=== PATIENT | female | born 1980 | race Asian ===

== ENCOUNTER → 2019-05-21 | Outpatient (CLI) | payer OTHER | END | disposition home or self-care (01) | LOC: SMI 09:59 | PROVIDERS: ATTEND Neurological Surgery | DX: M25.461 Effusion, right knee (principal); M19.012 Primary osteoarthritis, left shoulder; M48.02 Spinal stenosis, cervical region; M50.223 Other cervical disc displacement at C6-C7 level; M54.12 Radiculopathy, cervical region | CPT/HCPCS: 73221; 73721 ==

== ENCOUNTER 2022-01-01 06:59 | Day surgery (SDC) | payer OTHER, SELFPAY ==
[~2022-01-01] VITALS: Ht 165.1 cm; Wt 63.5 kg
[2022-01-01 08:08] LABS: HCG,QUAL RESULT NEGATIVE (NEGATIVE)
[2022-01-01] MEDS ORDERED: MIDAZOLAM HCL 5 MG/5 ML VIAL ONE (08:30)
[2022-01-01] MEDS ORDERED: IOHEXOL 300 mgI/mL, 50 mL INFUS..BTL IV ONE (08:30)
[2022-01-01] MEDS ORDERED: LIDOCAINE 2%, 20 ML MDV ONE (08:30)
[2022-01-01] MEDS ORDERED: BUPIVACAINE /PF 0.25% 30 ML VIAL INJ ONE (08:30)
[2022-01-01] MEDS ORDERED: DIPHENHYDRAMINE INJ 50 MG/ML VIAL ONE (08:30)
[2022-01-01] MEDS ORDERED: NS 500 ML IV.SOLN IV ONE (08:30)
[2022-01-01] MEDS ORDERED: methylPREDNISolone ACETATE 40 MG/ML ONE (08:30)
[2022-01-01 14:45] VITALS: BP_SYST 128
== END 2022-01-01 11:10 | disposition home or self-care (01) ==
LOC: SDS 06:59 → SMU 06:59 → SDS 11:10
PROVIDERS: ATTEND Internal Medicine
DX: M50.13 Cervical disc disorder with radiculopathy, cervicothoracic region (principal); M25.511 Pain in right shoulder; Z20.822 Contact with and (suspected) exposure to COVID-19; Z79.899 Other long term (current) drug therapy
CPT/HCPCS: 36415; 76000; 84703; J1030; J1200; J2001; J2250; J3490; J7040; Q9967; U0003

== ENCOUNTER 2022-05-28 06:47 | Day surgery (SDC) | payer OTHER ==
[~2022-05-28] VITALS: Ht 165.1 cm; Wt 63.5 kg
[2022-05-28 07:18] LABS: HCG,QUAL RESULT NEGATIVE (NEGATIVE)
[2022-05-28] MEDS ORDERED: MIDAZOLAM HCL 5 MG/5 ML VIAL ONE (08:38)
[2022-05-28] MEDS ORDERED: DIPHENHYDRAMINE INJ 50 MG/ML VIAL ONE (08:39)
[2022-05-28] MEDS ORDERED: LIDOCAINE 2%, 20 ML MDV ONE (09:57)
[2022-05-28] MEDS ORDERED: IOHEXOL 300 mgI/mL, 50 mL INFUS..BTL IV ONE (09:57)
[2022-05-28] MEDS ORDERED: methylPREDNISolone ACETATE 40 MG/ML ONE (09:57)
[2022-05-28] MEDS ORDERED: NORMAL SALINE 10 ML VIAL ONE (09:57)
[2022-05-28 15:40] VITALS: BP_SYST 120
== END 2022-05-28 11:10 | disposition home or self-care (01) ==
LOC: SDS 06:47 → SMU 06:48 → SDS 11:10
PROVIDERS: ATTEND Internal Medicine
DX: M50.90 Cervical disc disorder, unspecified, unspecified cervical region (principal); M25.511 Pain in right shoulder; Z20.822 Contact with and (suspected) exposure to COVID-19; Z79.899 Other long term (current) drug therapy
CPT/HCPCS: 36415 ×2; 62321; 87426; 84703; U0003; J1200; J2001; J1030; J2250; Q9967; 76000

== ENCOUNTER 2022-08-27 07:11 | Day surgery (SDC) | payer OTHER ==
[~2022-08-27] VITALS: Ht 165.1 cm; Wt 61.7 kg
[2022-08-27 07:28] LABS: HCG,QUAL RESULT NEGATIVE (NEGATIVE)
[2022-08-27] MEDS ORDERED: MIDAZOLAM HCL 5 MG/5 ML VIAL ONE (08:46)
[2022-08-27] MEDS ORDERED: DIPHENHYDRAMINE INJ 50 MG/ML VIAL ONE (08:47)
[2022-08-27] MEDS ORDERED: fentaNYL CITRATE/PF 100 MCG/2 ML AMP ONE (08:47)
[2022-08-27] MEDS ORDERED: ONDANSETRON HCL 4 MG/2 ML VIAL ONE (08:48)
[2022-08-27 15:29] VITALS: BP_SYST 120
== END 2022-08-27 11:40 | disposition home or self-care (01) ==
LOC: SDS 07:11 → STU 07:14 → SDS 11:40
PROVIDERS: ATTEND Internal Medicine
DX: M50.83 Other cervical disc disorders, cervicothoracic region (principal); M25.511 Pain in right shoulder; I10 Essential (primary) hypertension; E78.5 Hyperlipidemia, unspecified; Z79.899 Other long term (current) drug therapy; Z20.822 Contact with and (suspected) exposure to COVID-19
CPT/HCPCS: 36415; 62321; 84703; U0003; J1200; J2250; J3010; 76000; J2405

== ENCOUNTER 2023-09-23 09:19 | Day surgery (SDC) | payer OTHER ==
[~2023-09-23] VITALS: Ht 165.1 cm; Wt 61.7 kg
[~2023-09-23 09:19] MED LIST: DEXAMETHASONE SOD PHOSPHATE 4 MG/ML VIAL ONE; ISOVUE-300 (IOPAMIDOL) 100 ML INFUS..BTL IV ONE; LIDOCAINE 2%, 20 ML MDV ONE; NORMAL SALINE 10 ML VIAL ONE
[2023-09-23 09:51] LABS: HCG,QUAL RESULT NEGATIVE (NEGATIVE)
[2023-09-23] MEDS ORDERED: DIPHENHYDRAMINE INJ 50 MG/ML VIAL IVP ONE (11:00)
[2023-09-23] MEDS ORDERED: DIPHENHYDRAMINE INJ 50 MG/ML VIAL ONE ×2 (11:50→12:06)
[2023-09-23] MEDS ORDERED: fentaNYL CITRATE/PF 100 MCG/2 ML AMP ONE (12:06)
[2023-09-23] MEDS ORDERED: ONDANSETRON HCL 4 MG/2 ML VIAL ONE (12:06)
[2023-09-23] MEDS: MIDAZOLAM HCL 5 MG/5 ML VIAL ONE ×3 (12:14→12:20)
[2023-09-23 12:39] VITALS: O2SAT 100
[2023-09-23 13:55] VITALS: BP_SYST 133; PULSE 82; RESP 16
== END 2023-09-23 13:09 | disposition home or self-care (01) ==
LOC: SDS 09:19 → SMU 09:26 → SDS 13:09
PROVIDERS: ATTEND Internal Medicine
DX: M50.13 Cervical disc disorder with radiculopathy, cervicothoracic region (principal); M25.511 Pain in right shoulder; I10 Essential (primary) hypertension; E78.5 Hyperlipidemia, unspecified; Z79.899 Other long term (current) drug therapy
CPT/HCPCS: 62321; 84703; J1100; J1200; J2001; J2250; J3010; Q9967; 76000; J2405

== ENCOUNTER 2024-03-30 07:11 | Day surgery (SDC) | payer OTHER ==
[~2024-03-30] VITALS: Ht 165.1 cm; Wt 61.7 kg
[2024-03-30 08:10] LABS: HCG,QUAL RESULT NEGATIVE (NEGATIVE)
[2024-03-30] MEDS ORDERED: ONDANSETRON HCL 4 MG/2 ML VIAL ONE (08:26)
[2024-03-30] MEDS ORDERED: DIPHENHYDRAMINE INJ 50 MG/ML VIAL ONE (08:26)
[2024-03-30] MEDS ORDERED: fentaNYL CITRATE/PF 100 MCG/2 ML AMP ONE (08:27)
[2024-03-30] MEDS ORDERED: MIDAZOLAM HCL 5 MG/5 ML VIAL ONE (08:28)
[2024-03-30] MEDS ORDERED: LIDOCAINE MPF 2% 20 MG/1 ML, 5 ML VIAL INH ONE (09:00)
[2024-03-30] MEDS: fentaNYL CITRATE/PF 100 MCG/2 ML AMP IVP ONE (09:15)
[2024-03-30 12:47] VITALS: TEMP 98.3; O2SAT 99
[2024-03-30 13:51] VITALS: BP_SYST 124; PULSE 81; RESP 15
== END 2024-03-30 10:30 | disposition home or self-care (01) ==
LOC: SDS 07:11 → SMU 07:12 → SDS 10:30
PROVIDERS: ATTEND Internal Medicine
DX: M50.13 Cervical disc disorder with radiculopathy, cervicothoracic region (principal); I10 Essential (primary) hypertension; E78.5 Hyperlipidemia, unspecified; Z79.899 Other long term (current) drug therapy
CPT/HCPCS: 62321; 84703; J2250; J3010; Q9967; J1010; 76000; J1030; J1200; J2405